=== PATIENT | male | born 1990 | race Caucasian/White ===

== ENCOUNTER 2017-02-07 20:53 | Emergency (ER) | payer BC, OTHER ==
[~2017-02-07] VITALS: Ht 182.9 cm; Wt 122.5 kg
[2017-02-07 20:55] VITALS: BP 140/90
--- NOTE | 2017-02-07 22:00 | NUR ---
PT. AMBULATES TO ER OF 1
--- NOTE | 2017-02-07 22:23 | NUR ---
Patient being evaluated by at bedside.
--- NOTE | 2017-02-07 22:30 | NUR ---
26Y/M PT. PRESENTS TO ED WITH C/O HEADACHE, VOMITING, FAINTING, WEAK ,LETHARGIC ON AND OFF FOR A MONTH. NO MEDICAL HX. AAO X 4, AMBULATORY WITH STEADY GAIT. GCS 15. RESPIRATIONS ROOM AIR, EVEN AND UNLABORED. C/O PAIN 10/10. VSS, ER MD MADE AWARE OF PT. STATUS.
--- NOTE | 2017-02-07 22:54 | NUR ---
PT MOVED TO BED 10
[2017-02-07 23:15] LABS: HEMOGLOBIN 17.5 g/dL (12.0-18.0)
[2017-02-07 23:17] LABS: HEMATOCRIT 52.1 % (36-52); MEAN CORPUSCULAR HEMOGLOBIN 30 pg (27-31); MEAN CORPUSCULAR HGB CONC 34 g/dL (33-37); MEAN CORPUSCULAR VOLUME 90 fL (80-94); PLATELET COUNT (AUTO) 157 K/uL (140-450); RED CELL DISTRIBUTION WIDTH 12.1 % (11.6-13.7); WHITE BLOOD COUNT (AUTO) 11.2 K/uL (4.8-10.8)
[2017-02-07 23:23] LABS: ANION GAP 9.5 (8-16); CARBON DIOXIDE 31.2 mmol/L (21-32); POTASSIUM 3.7 mmol/L (3.5-5.1)
[2017-02-07] MEDS ORDERED: DIAZEPAM 5 MG TAB PO ONE (23:25)
[2017-02-07 23:33] LABS: EOSINOPHILS % (MANUAL) 1 % (0-4); LYMPHOCYTES % (MANUAL) 21 % (20-46); MONOCYTES % (MANUAL) 9 % (5-12)
--- NOTE | 2017-02-07 23:59 | NUR ---
Patient discharged with v/s stable. Written and verbal after care instructions given and explained. Patient alert, oriented and verbalized understanding of instructions. Ambulatory with steady gait. All questions addressed prior to discharge. ID band removed. Patient advised to follow up with PMD. Rx of ATIVAN 1 MG given. Patient educated on indication of medication including possible reaction and side effects. Opportunity to ask questions provided and answered.
[2017-02-08] VITALS: BP 137/73
== END 2017-02-07 23:59 | disposition home or self-care (01) ==
LOC: MED 20:53
DX: F41.9 Anxiety disorder, unspecified (principal); R00.2 Palpitations
CPT/HCPCS: 36415; 71010; 80048; 84484; 85025; 93005; 99285